=== PATIENT | male | born 1935 | race Caucasian/White ===

== ENCOUNTER 2018-06-17 10:35 | Inpatient (IN) | payer MEDICARE, BC ==
[~2018-06-17] VITALS: Ht 175.3 cm; Wt 80.0 kg
[2018-06-17] VITALS (17 sets, daily range): BP systolic 91–151; BP diastolic 44–84
[2018-06-17] MEDS ORDERED: aspirin 81mg tab.chew PO ONE (10:55)
[2018-06-17 11:16] LABS: BASOPHILS % (AUTO) 0.5 % (0-1); EOSINOPHILS % (AUTO) 0.1 % (0-6); LYMPHOCYTES # (AUTO) 2.2 X10'3 (1.1-4.8); LYMPHOCYTES % (AUTO) 22.3 % (21-51); MEAN CORPUSCULAR HEMOGLOBIN 33.8 PG (27.0-31.0); MEAN CORPUSCULAR HGB CONC 34.7 g/dL (33.0-36.5); MEAN CORPUSCULAR VOLUME 97.4 FL (78-98); MEAN PLATELET VOLUME 8.2 FL (7.4-10.4); MONOCYTES # (AUTO) 0.9 X10'3 (0-0.9); MONOCYTES % (AUTO) 8.8 % (2-12); NEUTROPHILS # (AUTO) 6.6 X10'3 (1.8-7.7); NEUTROPHILS % (AUTO) 68.3 % (42-75); PLATELET COUNT 317 X10'3 (140-440); RED BLOOD COUNT 1.68 X10'6 (4.70-6.10); RED CELL DISTRIBUTION WIDTH 19.2 % (11.5-14.5); WHITE BLOOD COUNT 9.7 X10'3 (4.5-11.0)
[2018-06-17 11:24] LABS: HEMATOCRIT 16.3 % (42.0-52.0); HEMOGLOBIN 5.7 g/dl (14.0-17.9)
[2018-06-17 11:31] LABS: INR 1.2 INR; PARTIAL THROMBOPLASTIN TIME 22 SECONDS (22-32)
[2018-06-17 11:44] LABS: D-DIMER 0.22 MG/L FEU (0-0.50)
[2018-06-17 11:45] LABS: ALANINE AMINOTRANSFERASE 19 U/L (12-78); ALBUMIN 2.9 G/DL (3.4-5.0); ALBUMIN/GLOBULIN RATIO 1.2 (1.1-1.5); ALKALINE PHOSPHATASE 21 IU/L (46-116); ANION GAP 8 (8-16); ASPARTATE AMINO TRANSFERASE 10 U/L (10-37); BILIRUBIN,TOTAL 0.2 MG/DL (0.1-1.0); BLOOD UREA NITROGEN 70 MG/DL (7-18); BUN/CREATININE RATIO 44.3 (5.4-32.0); CALCIUM 9.7 MG/DL (8.5-10.1); CHLORIDE 105 MMOL/L (99-107); CREATININE 1.58 MG/DL (0.60-1.10); GLUCOSE 141 MG/DL (70-104); POTASSIUM 4.3 MMOL/L (3.5-5.1); SODIUM 137 MMOL/L (135-145); TOTAL CARBON DIOXIDE 23.8 MMOL/L (24-32); TOTAL PROTEIN 5.3 G/DL (6.4-8.2); eGFR 42 ML/MIN
[2018-06-17] MEDS ORDERED: GABA600T13 PO (12:08)
[2018-06-17] MEDS ORDERED: RIVA20TA PO (12:08)
[2018-06-17] MEDS ORDERED: SACU1TAB PO ×2 (12:08→12:09)
[2018-06-17] MEDS ORDERED: FLO0.4C PO (12:08)
[2018-06-17] MEDS ORDERED: ALPR-624 PO (12:08)
[2018-06-17] MEDS ORDERED: TRAM50TA2 PO (12:08)
[2018-06-17] MEDS ORDERED: ATOR20TA66 PO (12:08)
[2018-06-17] MEDS ORDERED: METO-539 PO (12:08)
[2018-06-17] MEDS ORDERED: CALC-1197 PO (12:12)
[2018-06-17] MEDS ORDERED: C,E,1CAP PO (12:12)
[2018-06-17 12:57] LABS: ANISOCYTOSIS 2+; PLATELET ESTIMATE NORMAL
[2018-06-17 12:58] LABS: ELLIPTOCYTES FEW; POLYCHROMASIA 1+; TEAR DROP CELLS FEW
[2018-06-17] MEDS ORDERED: LIDOcaine Viscous 15ml cup ONE (13:11)
[2018-06-17] MEDS ORDERED: fentaNYL/PF 50MCG/1 ML 2ML syringe ONE (13:11)
[2018-06-17] MEDS ORDERED: MIDAZolam 5mg/5ml vial ONE (13:11)
[2018-06-17] MEDS ORDERED: mag hydrox/Alum hydrox/simeth 30ml oral suspension PO PRN (16:00)
[2018-06-17] MEDS ORDERED: potassium Cl 20 mEq SR tablet PO PRN ×2 (16:00)
[2018-06-17] MEDS ORDERED: magnesium 2GM in 50ml NS 50 ML IV PRN (16:00)
[2018-06-17] MEDS ORDERED: magnesium Cl slow-release 64mg tablet PO PRN (16:00)
[2018-06-17] MEDS ORDERED: magnesium 4gm in 100ml NS 100 ML IV PRN (16:00)
[2018-06-17] MEDS ORDERED: potassium Cl 40MEQ/NS 500ml 500 ML IV PRN ×2 (16:00)
[2018-06-17] MEDS ORDERED: docusate sod 100mg capsule PO PRN (16:00)
[2018-06-17] MEDS ORDERED: acetaminophen 325mg tablet PO PRN ×2 (16:00)
[2018-06-17] MEDS ORDERED: ondansetron/PF 4mg/2ml inj IV PRN (16:00)
--- NOTE | 2018-06-17 18:22 | NUR ---
Patient currently in GI lab. Patient has inpatient room assignment and Isreal is given report to the accepting floor nurse. Patient will be transferred to his room once he returns from the GI lab.
--- NOTE | 2018-06-17 18:32 | NUR ---
GAVE REPORT TO ÓSCAR JO ON PCU. ALL QUESTIONS ANSWERED.
[2018-06-17] MEDS: normal saline 1000ml 1,000 ML IV SCH (19:28)
[2018-06-17] MEDS: pantoprazole 40MG/NS 100ML BAG 100 ML IV SCH ×3 (20:15→23:58)
[2018-06-17] MEDS: gabapentin 300mg capsule PO SCH (21:00)
[2018-06-18] VITALS (8 sets, daily range): BP systolic 124–169; BP diastolic 51–74
[2018-06-18] MEDS: normal saline 1000ml 1,000 ML IV SCH ×2 (04:57→18:36)
[2018-06-18] MEDS: pantoprazole 40MG/NS 100ML BAG 100 ML IV SCH ×4 (05:14→19:06)
[2018-06-18 05:54] LABS: BASOPHILS % (AUTO) 0.5 % (0-1); EOSINOPHILS % (AUTO) 0.1 % (0-6); HEMATOCRIT 24.2 % (42.0-52.0); HEMOGLOBIN 8.2 g/dl (14.0-17.9); LYMPHOCYTES # (AUTO) 1.5 X10'3 (1.1-4.8); LYMPHOCYTES % (AUTO) 20.4 % (21-51); MEAN CORPUSCULAR HEMOGLOBIN 30.7 PG (27.0-31.0); MEAN CORPUSCULAR HGB CONC 33.9 g/dL (33.0-36.5); MEAN CORPUSCULAR VOLUME 90.6 FL (78-98); MONOCYTES # (AUTO) 0.7 X10'3 (0-0.9); MONOCYTES % (AUTO) 10.1 % (2-12); NEUTROPHILS # (AUTO) 5.1 X10'3 (1.8-7.7); NEUTROPHILS % (AUTO) 68.9 % (42-75); PLATELET COUNT 222 X10'3 (140-440); RED BLOOD COUNT 2.67 X10'6 (4.70-6.10); RED CELL DISTRIBUTION WIDTH 17.7 % (11.5-14.5); WHITE BLOOD COUNT 7.4 X10'3 (4.5-11.0)
--- NOTE | 2018-06-18 06:00 | NUR ---
Student Medication Administration: For this medication-pass time frame, all medication were reviewed, dispensed, administered and documented per hospital policy by Ara LUGO. Student documentation: I have reviewed and agree with all interventions, assessments performed and documented by Ara LUGO.
[2018-06-18 06:04] LABS: ALBUMIN 2.6 G/DL (3.4-5.0); ANION GAP 8 (8-16); BLOOD UREA NITROGEN 55 MG/DL (7-18); CALCIUM 8.7 MG/DL (8.5-10.1); CHLORIDE 111 MMOL/L (99-107); CREATININE 1.28 MG/DL (0.60-1.10); GLUCOSE 91 MG/DL (70-104); SODIUM 142 MMOL/L (135-145); TOTAL CARBON DIOXIDE 22.9 MMOL/L (24-32); eGFR 54 ML/MIN
--- NOTE | 2018-06-18 06:10 | NUR ---
Problems reprioritized. Patient report given, questions answered & plan of care reviewed with Erna CANTRELL & Tracie CANTRELL. Addendum: 06/18/18 at 0613 by Katerine Niño RN Disregard - incorrect patient
--- NOTE | 2018-06-18 06:34 | NUR ---
Problems reprioritized. Patient report given, questions answered & plan of care reviewed with Evelina CANTRELL.
[2018-06-18] MEDS: traMADol 50MG tablet PO SCH (08:00)
[2018-06-18] MEDS ORDERED: gabapentin 400mg capsule PO SCH (08:00)
[2018-06-18] MEDS: K and/or MAG REPLACEMENT MC SCH (08:00)
[2018-06-18] MEDS: tamsulosin 0.4mg capsule PO SCH (09:55)
[2018-06-18] MEDS: atorvastatin 20mg tablet PO SCH (09:55)
[2018-06-18] MEDS: metoprolol succinate 25mg (24-HOUR) SR. Tablet PO SCH (09:56)
[2018-06-18] MEDS: gabapentin 300mg capsule PO SCH ×3 (09:56→19:06)
[2018-06-18 11:45] LABS: BASOPHILS % (AUTO) 0.5 % (0-1); EOSINOPHILS % (AUTO) 0 % (0-6); HEMATOCRIT 25.1 % (42.0-52.0); HEMOGLOBIN 8.4 g/dl (14.0-17.9); LYMPHOCYTES # (AUTO) 0.9 X10'3 (1.1-4.8); LYMPHOCYTES % (AUTO) 13.6 % (21-51); MEAN CORPUSCULAR HEMOGLOBIN 30.6 PG (27.0-31.0); MEAN CORPUSCULAR HGB CONC 33.5 g/dL (33.0-36.5); MEAN CORPUSCULAR VOLUME 91.5 FL (78-98); MEAN PLATELET VOLUME 7.6 FL (7.4-10.4); MONOCYTES # (AUTO) 0.6 X10'3 (0-0.9); MONOCYTES % (AUTO) 8.3 % (2-12); NEUTROPHILS # (AUTO) 5.3 X10'3 (1.8-7.7); NEUTROPHILS % (AUTO) 77.6 % (42-75); PLATELET COUNT 239 X10'3 (140-440); RED BLOOD COUNT 2.75 X10'6 (4.70-6.10); WHITE BLOOD COUNT 6.8 X10'3 (4.5-11.0)
[2018-06-18 12:17] LABS: ANISOCYTOSIS 2+; PLATELET ESTIMATE NORMAL
[2018-06-18 12:18] LABS: LARGE PLATELETS FEW; POLYCHROMASIA 1+
[2018-06-18] MEDS: ALPRAZolam 0.5mg tablet PO SCH (13:14)
[2018-06-18] MEDS ORDERED: hydrALAZINE 20mg/ml inj. IV PRN (14:10)
--- NOTE | 2018-06-18 15:17 | NUR ---
PAGER ID: [phone] MESSAGE: Orville 406Eric Cervantes. FYI patient had HR of 140s while having a BM, HR is now in the 70s. Evelina [id number]
--- NOTE | 2018-06-18 15:50 | NUR ---
Rm 1138A, Eric. Dr. Valentino wants an extended PIV in this patient before the weekend. Thank you.
--- NOTE | 2018-06-18 18:07 | NUR ---
Problems reprioritized. Patient report given, questions answered & plan of care reviewed with Katerine CANTRELL. Patient stable at transfer of care.
[2018-06-18] MEDS: sacubitril/valsartan 24mg-26mg tablet PO SCH (19:06)
[2018-06-19] MEDS: pantoprazole 40MG/NS 100ML BAG 100 ML IV SCH ×5 (00:33→23:22)
[2018-06-19 02:00] VITALS: BP 125/61
[2018-06-19] MEDS: normal saline 1000ml 1,000 ML IV SCH ×2 (02:04→23:17)
[2018-06-19 06:19] LABS: BASOPHILS % (AUTO) 0.5 % (0-1); EOSINOPHILS % (AUTO) 0.5 % (0-6); HEMATOCRIT 24.4 % (42.0-52.0); HEMOGLOBIN 8.3 g/dl (14.0-17.9); LYMPHOCYTES # (AUTO) 1.6 X10'3 (1.1-4.8); LYMPHOCYTES % (AUTO) 20.6 % (21-51); MEAN CORPUSCULAR HGB CONC 33.9 g/dL (33.0-36.5); MEAN CORPUSCULAR VOLUME 91.4 FL (78-98); MEAN PLATELET VOLUME 7.8 FL (7.4-10.4); MONOCYTES # (AUTO) 0.8 X10'3 (0-0.9); NEUTROPHILS # (AUTO) 5.4 X10'3 (1.8-7.7); NEUTROPHILS % (AUTO) 68.4 % (42-75); PLATELET COUNT 232 X10'3 (140-440); RED BLOOD COUNT 2.68 X10'6 (4.70-6.10); RED CELL DISTRIBUTION WIDTH 18.7 % (11.5-14.5); WHITE BLOOD COUNT 7.9 X10'3 (4.5-11.0)
[2018-06-19 06:26] LABS: ALBUMIN 2.7 G/DL (3.4-5.0); ANION GAP 9 (8-16); BLOOD UREA NITROGEN 33 MG/DL (7-18); BUN/CREATININE RATIO 28.7 (5.4-32.0); CALCIUM 8.8 MG/DL (8.5-10.1); CHLORIDE 112 MMOL/L (99-107); CREATININE 1.15 MG/DL (0.60-1.10); GLUCOSE 93 MG/DL (70-104); MAGNESIUM 2.1 MG/DL (1.5-2.4); POTASSIUM 3.8 MMOL/L (3.5-5.1); SODIUM 143 MMOL/L (135-145); TOTAL CARBON DIOXIDE 22.1 MMOL/L (24-32); eGFR 61 ML/MIN
--- NOTE | 2018-06-19 06:31 | NUR ---
Problems reprioritized. Patient report given, questions answered & plan of care reviewed with Latisha CANTRELL & Lo CANTRELL.
[2018-06-19 07:00] VITALS: BP 142/66
--- NOTE | 2018-06-19 07:02 | NUR ---
Patient in room PCU 3018. I have received report from Katerine CANTRELL and had the opportunity to ask questions and assume patient care.
[2018-06-19] MEDS: atorvastatin 20mg tablet PO SCH (07:33)
[2018-06-19] MEDS: gabapentin 300mg capsule PO SCH ×2 (07:33→21:24)
[2018-06-19] MEDS: traMADol 50MG tablet PO SCH (07:33)
[2018-06-19] MEDS: ALPRAZolam 0.5mg tablet PO SCH (07:33)
[2018-06-19] MEDS: tamsulosin 0.4mg capsule PO SCH (07:33)
[2018-06-19] MEDS: sacubitril/valsartan 24mg-26mg tablet PO SCH ×2 (07:33→21:24)
[2018-06-19] MEDS: metoprolol succinate 25mg (24-HOUR) SR. Tablet PO SCH (07:33)
[2018-06-19 07:46] LABS: ANISOCYTOSIS 2+; HYPOCHROMASIA 1+; PLATELET ESTIMATE NORMAL; POLYCHROMASIA 1+
[2018-06-19 07:47] LABS: ELLIPTOCYTES FEW
[2018-06-19] MEDS: K and/or MAG REPLACEMENT MC SCH (08:00)
[2018-06-19 11:00] VITALS: BP 98/57
[2018-06-19 15:00] VITALS: BP 127/71
[2018-06-19 18:00] VITALS: BP 138/80
--- NOTE | 2018-06-19 18:30 | NUR ---
Problems reprioritized. Patient report given, questions answered & plan of care reviewed with ÓSCAR Garcias.
--- NOTE | 2018-06-19 18:43 | NUR ---
Patient in room PCU 3012. I have received report from Latisha and had the opportunity to ask questions and assume patient care.
--- NOTE | 2018-06-19 18:48 | NUR ---
[place] documentation: I have reviewed and agree with interventions, assessments performed and documented by ÓSCAR Blanchard. For this medication-pass time frame, medication were reviewed, dispensed, administered and documented per hospital policy by ÓSCAR Blanchard.
[2018-06-19] MEDS: rivaroxaban 20mg tablet PO SCH (21:23)
[2018-06-19 22:00] VITALS: BP 146/73
[2018-06-20 02:00] VITALS: BP 142/74
[2018-06-20] MEDS: pantoprazole 40MG/NS 100ML BAG 100 ML IV SCH (04:03)
--- NOTE | 2018-06-20 05:48 | NUR ---
Student Medication Administration: For this medication-pass time frame, all medication were reviewed, dispensed, administered and documented per hospital policy by Flower CANTRELL. [place] documentation: I have reviewed and agree with all interventions, assessments performed and documented by ÓSCAR Crenshaw.
--- NOTE | 2018-06-20 06:18 | NUR ---
Problems reprioritized. Patient report given, questions answered & plan of care reviewed with Latisha CANTRELL & Lo CANTRELL.
--- NOTE | 2018-06-20 06:30 | NUR ---
Patient in room PCU 3012. I have received report from ÓSCAR Garcias and had the opportunity to ask questions and assume patient care.
[2018-06-20 06:35] LABS: BASOPHILS # (AUTO) 0.1 X10'3 (0-0.2); BASOPHILS % (AUTO) 0.7 % (0-1); EOSINOPHILS # (AUTO) 0.1 X10'3 (0-0.9); HEMATOCRIT 26.4 % (42.0-52.0); LYMPHOCYTES # (AUTO) 1.5 X10'3 (1.1-4.8); LYMPHOCYTES % (AUTO) 19.9 % (21-51); MEAN CORPUSCULAR HEMOGLOBIN 31.7 PG (27.0-31.0); MEAN CORPUSCULAR HGB CONC 34.1 g/dL (33.0-36.5); MEAN CORPUSCULAR VOLUME 92.9 FL (78-98); MEAN PLATELET VOLUME 7.8 FL (7.4-10.4); MONOCYTES # (AUTO) 0.9 X10'3 (0-0.9); MONOCYTES % (AUTO) 12.3 % (2-12); NEUTROPHILS # (AUTO) 4.9 X10'3 (1.8-7.7); NEUTROPHILS % (AUTO) 66.1 % (42-75); PLATELET COUNT 245 X10'3 (140-440); RED BLOOD COUNT 2.84 X10'6 (4.70-6.10); RED CELL DISTRIBUTION WIDTH 19.1 % (11.5-14.5); WHITE BLOOD COUNT 7.5 X10'3 (4.5-11.0)
[2018-06-20 06:38] LABS: ALBUMIN 2.7 G/DL (3.4-5.0); ANION GAP 7 (8-16); BLOOD UREA NITROGEN 27 MG/DL (7-18); CALCIUM 8.6 MG/DL (8.5-10.1); CHLORIDE 111 MMOL/L (99-107); CREATININE 1.08 MG/DL (0.60-1.10); GLUCOSE 87 MG/DL (70-104); POTASSIUM 3.8 MMOL/L (3.5-5.1); SODIUM 141 MMOL/L (135-145); eGFR 66 ML/MIN
[2018-06-20 07:00] VITALS: BP 113/74
[2018-06-20 07:31] LABS: ANISOCYTOSIS 2+; PLATELET ESTIMATE NORMAL
[2018-06-20 07:32] LABS: POIKILOCYTOSIS FEW; POLYCHROMASIA 1+; SCHISTOCYTES FEW
[2018-06-20] MEDS: tamsulosin 0.4mg capsule PO SCH (07:48)
[2018-06-20] MEDS: traMADol 50MG tablet PO SCH (07:48)
[2018-06-20] MEDS: gabapentin 300mg capsule PO SCH (07:48)
[2018-06-20] MEDS: metoprolol succinate 25mg (24-HOUR) SR. Tablet PO SCH (07:48)
[2018-06-20] MEDS: atorvastatin 20mg tablet PO SCH (07:48)
[2018-06-20] MEDS: sacubitril/valsartan 24mg-26mg tablet PO SCH (07:49)
[2018-06-20] MEDS: rivaroxaban 20mg tablet PO SCH (07:49)
[2018-06-20] MEDS: ALPRAZolam 0.5mg tablet PO SCH (07:49)
--- NOTE | 2018-06-20 07:59 | NUR ---
PAGER ID: [phone] MESSAGE: Room 6939B Florin Reyes, IV infiltrated and dc'd, no new IV, protonix gtt off, do you want to start oral protonix?- Lo [id number], awaiting return call
--- NOTE | 2018-06-20 09:51 | NUR ---
PAGER ID: [phone] MESSAGE: [id number] pt Eric I see the discharge order in but no DC medications. I just wanted to make sure this is correct before I proceed. - Latisha [phone]
[2018-06-20] MEDS ORDERED: ESOM40CA PO (10:13)
--- NOTE | 2018-06-20 10:50 | NUR ---
Patient discharged stable in no apparent distress with all belongings. IV and bands off. Prescriptions called into [facility] in [place], [place]. Patient wheeled in wheel chair out to transportation.
--- NOTE | 2018-06-20 13:01 | NUR ---
[place] documentation: I have reviewed and agree with interventions, assessments performed and documented by ÓSCAR Blanchard. [place] Medication Administration: For this medication-pass time frame, medication were reviewed, dispensed, administered and documented per hospital policy by ÓSCAR Blanchard.
[2018-06-24 14:40] LABS: OCCULT BLOOD STOOL POSITIVE (Neg)
== END 2018-06-20 10:50 | disposition home or self-care (01) | DRG 377 ==
LOC: ER 10:36 → ED HOLD 15:56 → PCU 3S 19:13
PROVIDERS: ADMIT Internal Medicine; ATTEND Internal Medicine Gastroenterology
PROC: 0W3P8ZZ Control Bleeding in Gastrointestinal Tract, Via Natural or Artificial Opening Endoscopic (ICD-10-PCS; principal; 2018-06-17)
PROC: 30233N1 Transfusion of Nonautologous Red Blood Cells into Peripheral Vein, Percutaneous Approach (ICD-10-PCS; 2018-06-17)
DX: K31.82 Dieulafoy lesion (hemorrhagic) of stomach and duodenum (principal); N17.0 Acute kidney failure with tubular necrosis; I50.22 Chronic systolic (congestive) heart failure; I13.0 Hypertensive heart and chronic kidney disease with heart failure and stage 1 through stage 4 chronic kidney disease, or unspecified chronic kidney disease; N18.3 Chronic kidney disease, stage 3 (moderate); D64.9 Anemia, unspecified; E78.5 Hyperlipidemia, unspecified; I25.10 Atherosclerotic heart disease of native coronary artery without angina pectoris; I48.2 Chronic atrial fibrillation; I73.9 Peripheral vascular disease, unspecified; Z95.810 Presence of automatic (implantable) cardiac defibrillator; Z79.899 Other long term (current) drug therapy; Z79.01 Long term (current) use of anticoagulants; Z87.891 Personal history of nicotine dependence
CPT/HCPCS: 36415; 71045; 80048; 80053; 82272; 83735; 83880; 84439; 84443; 84484; 85025; 85379; 85610; 85730; 86885; 86900; 86901; 86920; 87070; 93005; 93306; 99152; 99285; A4620; C9113; G0378; J2250; J3010; J7030; P9016